=== PATIENT | female | born 1960 | race Caucasian/White ===

== ENCOUNTER 2019-12-27 13:04 | Emergency (ER) | payer BC ==
[~2019-12-27] VITALS: Ht 154.9 cm; Wt 81.6 kg
--- OUTSIDE RECORDS SUMMARY | 2019-12-27 13:08 | XMS REPORT | Summary of Care ---
Author Author KHADIJAH Gonzales, MARBELLA Organization Unknown Address Unknown Phone Unavailable Care Team Providers Care Clinical Services Manager Name Role Phone DENISSE Henderson, SHANNAN Unavailable Unavailable Tamiko Monroy M.A. Unavailable Unavailable KHADIJAH Gonzales, MARBELLA Unavailable Unavailable RHONDA HILL [place], REJI TANG Unavailable Unavailable MYLES HILL, CONRAD Soares Unavailable Unavailable RHONDA Farfan, REJI Varela Unavailable Unavailable Unavailable Functional Status Name Dates Details Functional status health issues are not documented Status: Name Dates Details Cognitive status health issues are not documented Status: Problems Name Dates Details Encounter for routine gynecological examination (V72.31, Z01.419) Status: Active Need for Tdap vaccination (V06.1, Z23) Status: Active Need for hepatitis A vaccination (V05.3, Z23) Status: Active Colon cancer screening (V76.51, Z12.11) Status: Active Herpesviral infection of urogenital system, 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, 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 Change in mole (216.9, D22.9) Status: Active Nonsmoker (V49.89, Z78.9) Status: Active Fever and chills (780.60, R50.9) Status: Active Flu-like symptoms (780.99, R68.89) Status: Active Cough, persistent (786.2, R05) Status: Active Depression (311, F32.9) Status: Active Encounter for medication refill (V68.1, Z76.0) Status: Active Obesity, Class II, BMI 35-39.9 (278.00, E66.9) Status: Active Dental infection (522.4, K04.7) Status: Active Breast cancer screening (V76.10, Z12.39) Status: Active Need for hepatitis C screening test (V73.89, Z11.59) Status: Active Medications Name Dates Details Sertraline HCl - 50 MG Oral Tablet TAKE 1 TABLET DAILYNEEDS OFFICE VISIT Quantity: 30 KHADIJAH N.P., MARBELLA * Start : 11-Feb-2018 Active valACYclovir HCl - 500 MG Oral Tablet TAKE 1 TABLET DAILY * Quantity: 90 Refills: 1 DENISSE Webster.SHANANN Alva Active Amoxicillin 500 MG Oral Capsule TAKE 1 CAPSULE EVERY 8 HOURS FOR 10 DAYS UNTIL GONE. * Quantity: 30 Refills: 0 KHADIJAH N.P., MARBELLA * Start : 20-Mar-2019 Active Allergies and Adverse Reactions Name Dates Details No Known Drug Allergies (Allergy) Status: Active Past Medical History Name Dates Details History of Arthralgia (719.40, M25.50) Status: Resolved Procedures Procedure Dates Details History of Tubal Ligation Completed History of Breast Surgery Enlargement Procedure Completed Immunization Name Dates Details Tdap (Adacel) Lot #: [id number] on: 26-Feb-2015 Hepatitis A Lot #: [id number] on: 26-Feb-2015 Family History Name Dates Details Family history of hypertension (V17.49, Z82.49) Status: Active Name Dates Details Family history of diabetes mellitus (V18.0, Z83.3) Status: Active Family history of hypertension (V17.49, Z82.49) Status: Active Name Dates Details Family history of myocardial infarction (V17.3, Z82.49) Status: Active Social History Name Dates Details - Status: Name Dates Details Never smoker Vital Signs Date Test Result Details No Known Vitals to report Results Date Description Value Details Results not documented Plan of Care Name Dates Details Planned Observations Planned Goals not documented Interventions Provided Medication Changes* Sertraline HCl - 50 MG Oral Tablet - Renew Instructions Name Dates Details Instructions not documented Encounters Appointment; SHANNAN SALCEDO PLynsey Encounter Diagnosis: Problem not documented On: 15-Mar-2018 8:45 Appointment; SHANNAN SALCEDO P.A. Encounter Diagnosis: Problem not documented On: 13-Sep-2018 9:00 Appointment; ADELSO REILLY NP Encounter Diagnosis: Problem not documented On: 26-Dec-2018 9:00 Appointment; MARBELLA LUCIO NP Encounter Diagnosis: Problem not documented On: 20-Mar-2019 9:15
--- OUTSIDE RECORDS SUMMARY | 2019-12-27 13:08 | XMS REPORT | Summary of Care ---
Author Author TYRESE Farfan, BRINA Hirsch Unknown Address Unknown Phone Unavailable Care Team Providers Care Visualizer Name Role Phone SHANNAN ARGUETA Unavailable Unavailable TYRESE Farfan, BRINA Unavailable Unavailable RHONDA HILL [place], REJI TANG Unavailable Unavailable TYRESE HILL, BRINA Unavailable Unavailable MYLES HILL, CONRAD Soares Unavailable [...] Active Cough, persistent (786.2, R05) Status: Active Encounter for medication refill (V68.1, Z76.0) Status: Active Obesity, Class II, BMI 35-39.9 (278.00, E66.9) Status: Active Dental infection (522.4, K04.7) Status: Active Breast cancer screening (V76.10, Z12.39) Status: Active Need for hepatitis C screening test (V73.89, Z11.59) Status: Active Acute upper respiratory infection (465.9, J06.9) Status: Active Depression (311, F32.9) Status: Active Medications Name Dates Details Sertraline HCl - 50 MG Oral Tablet TAKE 1 TABLET DAILYNEEDS OFFICE VISIT Quantity: 30 TYRESE Farfan, BRINA * Start : 11-Feb-2018 Active valACYclovir HCl - 500 MG Oral Tablet TAKE 1 TABLET DAILY * Quantity: 90 Refills: 1 SALCEDO P.A. SHANNAN Active Bromfed DM 30-2-10 MG/5ML Oral Syrup TAKE 5 ML EVERY 6 HOURS * Quantity: 140 Refills: 0 TYRESE Farfan, BRINA * Start : 09-Oct-2019 Active Azithromycin 250 MG Oral Tablet TAKE 2 TABLETS ON DAY 1 THEN TAKE 1 TABLET A DAY FOR 4 DAYS. * Quantity: 6 Refills: 0 JANET XIONG M.D.A * Start : 09-Oct-2019 Active 6 Tablet Pack Allergies and Adverse Reactions Name Dates Details No Known Drug Allergies (Allergy) Status: Active Past Medical History Name Dates Details History of Arthralgia (719.40, M25.50) Status: Resolved Procedures Procedure Dates Details History of Tubal Ligation Completed History of Breast Surgery Enlargement Procedure Completed Immunization Name Dates Details Tdap (Adacel) Lot #: [id number] on: 26-Feb-2015 Hepatitis A Lot #: [id number] on: 26-Feb-2015 Family History Name Dates Details [...] smoker Vital Signs Date Test Result Details :05 O2 SAT 96 % Status: Heart Rate 104 /min Status: :12 Physical Findings 0 Status: Comments: PHQ-9 Adult Depression Screening :07 BP Systolic 123 mm[Hg] Status: BP Diastolic 70 mm[Hg] Status: Heart Rate 120 /min Status: Height 62 in Status: Weight 194 lb Status: Body Mass Index Calculated 35.48 kg/m2 Status: Body Surface Area Calculated 1.89 m2 Status: Temperature 102 f Status: Comments: Method: Temporal Respiration Rate 18 /min Status: Comments: Quality: Normal Physical Findings 0 Status: Comments: Alcohol Screen - How many times in the past yr have you had 5 (for M) or 4 (for F) or 4 (for all > 65yrs) or more drinks in a day? Results Date Description Value Details [id number] [O] Flu Test (in Office ) Flu A NEGATIVE (Normal) Flu B NEGATIVE (Normal) [id number] [O] Streptococcus Test Rapid (In Office) Group A Strep Screen NEGATIVE (Normal) Plan of Care Name Dates Details Planned Observations Planned Goals not documented Interventions Provided Medication Changes* Azithromycin 250 MG Oral Tablet - Start * Bromfed DM 30-2-10 MG/5ML Oral Syrup - Start * Sertraline HCl - 50 MG Oral Tablet - Renew Labs/Procedures/Imaging* [O] Flu Test (in Office ); Done: 09 Oct 2019 * [O] Streptococcus Test Rapid (In Office); Done: 09 Oct 2019 Medications/Immunizations Administered* MethylPREDNISolone Acetate 40 MG/ML Injection Suspension Instructions Name Dates Details Instructions not documented Encounters Appointment; SHANNAN SALCEDO PLynsey Encounter Diagnosis: Problem not documented On: 15-Mar-2018 8:45 Appointment; SHANNAN SALCEDO P.A. Encounter Diagnosis: Problem not documented On: 13-Sep-2018 9:00 Appointment; ADELSO REILLY NP Encounter Diagnosis: Problem not documented On: 26-Dec-2018 9:00 Appointment; MARBELLA LUCIO NP Encounter Diagnosis: Problem not documented On: 20-Mar-2019 9:15 Appointment; BRINA XIONG M.D. Encounter Diagnosis: Problem not documented On: 09-Oct-2019 15:00
--- OUTSIDE RECORDS SUMMARY | 2019-12-27 13:08 | XMS REPORT | Summary of Care ---
Author Author [facility] Address [address] [place] [address] Phone Unavailable Care Team Providers Care Plaster Helper Name Role Phone DENISSE Henderson, SHANNAN Unavailable Unavailable KHADIJAH N.P., MARBELLA Unavailable Unavailable RHONDA HILL [place], REJI TANG Unavailable Unavailable TYRESE HILL, BRINA [...] DAILY * Quantity: 90 Refills: 1 DENISSE P.SHANNAN Alva Active Amoxicillin 500 MG Oral Capsule [...] Name Dates Details Tdap (Adacel) Lot #: [id number] on: 26-Feb-2015 Hepatitis A Lot #: [id number] on: 26-Feb-2015 Family History Name Dates Details [...] Details Planned Observations Planned Goals not documented Instructions Name Dates Details Instructions not documented Encounters Appointment; SHANNAN SALCEDO P.A. Encounter Diagnosis: Problem not documented On: 15-Mar-2018 8:45 Appointment; SHANNAN SALCEDO P.A. Encounter Diagnosis: Problem not documented On: 13-Sep-2018 9:00 Appointment; ADELSO REILLY NP Encounter Diagnosis: Problem not documented On: 26-Dec-2018 9:00 Appointment; MARBELLA LUCIO NP Encounter Diagnosis: Problem not documented On: 20-Mar-2019 9:15 Appointment; BRINA XIONG M.D. Encounter Diagnosis: Problem not documented On: 09-Oct-2019 15:00
--- OUTSIDE RECORDS SUMMARY | 2019-12-27 13:08 | XMS REPORT | Summary of Care ---
Author Author TYRESE Farfan, BRINA Hirsch Unknown Address Unknown Phone Unavailable Care Team Providers Care Spa Host Name Role Phone SHANNAN ARGUETA Unavailable Unavailable TYRESE Farfan, BRINA Unavailable Unavailable RHONDA HILL [place], REJI TANG Unavailable Unavailable TYRESE HILL, BRINA [...] TAKE 1 TABLET DAILYNEEDS OFFICE VISIT Quantity: 90 TYRESE Farfan, BRINA * Start : 11-Feb-2018 Active valACYclovir HCl - 500 MG Oral Tablet TAKE 1 TABLET DAILY * Quantity: 90 Refills: 1 SHANNAN ARGUETA Active Bromfed DM 30-2-10 MG/5ML Oral Syrup [...] Name Dates Details Tdap (Adacel) Lot #: [id number] on: 26-Feb-2015 Hepatitis A Lot #: [id number] on: 26-Feb-2015 Family History Name Dates Details Family history of hypertension (V17.49, Z82.49) Status: Active Name Dates Details Family history of diabetes mellitus (V18.0, Z83.3) Status: Active Family history of hypertension (V17.49, Z82.49) Status: Active Name Dates Details Family history of myocardial infarction (V17.3, Z82.49) Status: Active Social History Name Dates Details - Status: Name Dates Details Never smoked tobacco (finding) Vital Signs Date Test Result Details No [...] documented On: 13-Sep-2018 9:00 Appointment; ADELSO REILLY APRN Encounter Diagnosis: Problem not documented On: 26-Dec-2018 9:00 Appointment; MARBELLA LUCIO APRN Encounter Diagnosis: Problem not documented On: 20-Mar-2019 9:15 Appointment; BRINA XIONG M.D. Encounter Diagnosis: Problem not documented On: 09-Oct-2019 15:00
--- OUTSIDE RECORDS SUMMARY | 2019-12-27 13:08 | XMS REPORT | Summary of Care ---
Author Author Daryl Chaudhry, Tiana Organization Unknown Address Unknown Phone Unavailable Care Team Providers Care Preschool Disability Teacher Name Role Phone SHANNAN ARGUETA Unavailable Unavailable TYRESE Farfan, BRINA Unavailable Unavailable RHONDA HILL [place], REJI TANG Unavailable Unavailable TYRESE HILL, BRINA [...] Name Dates Details Tdap (Adacel) Lot #: [id number] on: 26-Feb-2015 Hepatitis A Lot #: [id number] on: 26-Feb-2015 Family History Name Dates Details [...] a day? Results Date Description Value Details :06 [O] Flu Test (in Office ) Flu A NEGATIVE (Normal) Flu B NEGATIVE (Normal) :07 [O] Streptococcus Test Rapid (In Office) Group [...] Administered* MethylPREDNISolone Acetate 40 MG/ML Injection Suspension Plan* 1. URI, most likely of viral etiology, Strep and flu negative. Discussed that she may develop 2/2 bacterial infection. Delayed rx to be fill if symptoms worsen at 48 hour interval. Discuss with patient this is self- limiting and may be treated with over the counter analgesics (ibuprofen or acetaminophen) for pain. Patient may take supplemental Zinc to help limit viral replication. Patient advised to practice good hand hygiene. Patient may take honey for cough and do warm salt water gargles for sore throat. Advised rest and adequate hydration and if symptoms worsen ie. fever persisting than 101F (38.3C), productive cough, shortness of breath, or very bad headache or facial pain, to call office. * 2. Depression, refilled for one month. * Advised patient to return to clinic for routine follow up, labs and screenings. * Return to clinic within one months, sooner if needed * Please seek early care if condition worsens or there are new changes Instructions Name Dates Details Instructions not documented Encounters Appointment; SHANNAN SALCEDO P.A. Encounter Diagnosis: Problem not documented On: 15-Mar-2018 8:45 Appointment; SHANNAN SALCEDO P.A. Encounter Diagnosis: Problem not documented On: 13-Sep-2018 9:00 Appointment; MELBA, ADELSO, [employer] Encounter Diagnosis: Problem not documented On: 26-Dec-2018 9:00 Appointment; MARBELLA LUCIO NP Encounter Diagnosis: Problem not documented On: 20-Mar-2019 9:15 Appointment; BRINA XIONG M.D. Encounter Diagnosis: Problem not documented On: 09-Oct-2019 15:00
--- OUTSIDE RECORDS SUMMARY | 2019-12-27 13:08 | XMS REPORT | Summary of Care ---
Author Author [facility] Address [address] [place] [address] Phone Unavailable Care Team Providers Care Health Economist Name Role Phone SHANNAN ARGUETA Unavailable Unavailable KHADIJAH N.P., MARBELLA Unavailable Unavailable RHONDA HILL [place], REJI TANG Unavailable Unavailable TYRESE HILL, BRINA Unavailable Unavailable MYLES HILL, CONRAD Soares Unavailable Unavailable RHONDA Farfan, REJI Varela Unavailable Unavailable Unavailable Functional Status Name Dates Details Functional status health issues are not documented Status: Name Dates Details Cognitive status health issues are not documented Status: Problems Name Dates Details Colon cancer screening (V76.51, Z12.11) Status: Active Fever and chills (780.60, R50.9) [...] C screening test (V73.89, Z11.59) Status: Active Nonsmoker (V49.89, Z78.9) Status: Active Change in mole (216.9, D22.9) Status: Active Herpesviral infection of urogenital system, 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 Quantity: 30 KHADIJAH N.P., MARBELLA * Start : 20-Mar-2019 Active valACYclovir HCl - 500 MG Oral Tablet TAKE 1 TABLET DAILY * Quantity: 90 Refills: 1 DENISSE P.Lanre., SHANNAN Active Sertraline HCl - 50 MG Oral Tablet TAKE 1 TABLET DAILYNEEDS OFFICE VISIT * Quantity: 30 Refills: 0 KHADIJAH N.P., MARBELLA * Start : 11-Feb-2018 Active Allergies and Adverse Reactions Name Dates Details No Known Drug Allergies (Allergy) Status: Active Past Medical History Name Dates Details History of Arthralgia (719.40, M25.50) Status: Resolved Procedures Procedure Dates Details History of Tubal Ligation Completed History of Breast Surgery Enlargement Procedure Completed Immunization Name Dates Details Tdap (Adacel) Lot #: [id number] on: 26-Feb-2015 Hepatitis A Lot #: [id number] on: 26-Feb-2015 Family History Name Dates Details [...] Details Planned Observations Planned Goals not documented Planned Encounters Appointment; BRINA XIONG M.D. On: 09-Oct-2019 15:00 Instructions Name Dates Details Instructions not documented Encounters Appointment; SHANNAN SALCEDO P.A. Encounter Diagnosis: Problem not documented On: 15-Mar-2018 8:45 Appointment; SHANNAN SALCEDO P.A. Encounter Diagnosis: Problem not documented On: 13-Sep-2018 9:00 Appointment; ADELSO REILLY NP Encounter Diagnosis: Problem not documented On: 26-Dec-2018 9:00 Appointment; MARBELLA LUCIO NP Encounter Diagnosis: Problem not documented On: 20-Mar-2019 9:15
--- OUTSIDE RECORDS SUMMARY | 2019-12-27 13:08 | XMS REPORT | Summary of Care ---
Author Author Conrad Mejia R.N. Unknown Address [facility] Phone Unavailable Care Team Providers Care Head And Neck Surgeon Name Role Phone DENISSE Henderson, SHANNAN Unavailable Unavailable KHADIJAH N.PЕкатерина, MARBELLA Unavailable Unavailable TYRESE Farfan, BRINA Unavailable Unavailable [...] Quantity: 90 Refills: 1 SHANNAN ARGUETA Active Allergies and Adverse Reactions Name Dates Details No Known Drug Allergies (Allergy) Status: Active Past Medical History Name Dates Details History of Arthralgia (719.40, M25.50) Status: Resolved Procedures Procedure Dates Details History of Tubal Ligation Completed History of Breast Surgery Enlargement Procedure Completed Immunization Name Dates Details Tdap (Adacel) Lot #: [id number] on: 26-Feb-2015 Hepatitis A Lot #: [id number] on: 26-Feb-2015 Family History Name Dates Details [...] smoker Vital Signs Date Test Result Details :12 Physical Findings 0 Status: Comments: PHQ-9 Adult Depression Screening :07 BP Systolic 123 mm[Hg] Status: BP Diastolic 70 mm[Hg] Status: Height 62 in Status: Weight 194 lb Status: Body Mass Index Calculated 35.48 kg/m2 Status: Body Surface Area Calculated 1.89 m2 Status: Heart Rate 120 /min Status: Temperature 102 f Status: Comments: Method: Temporal Respiration Rate 18 /min Status: Comments: Quality: Normal Physical Findings 0 Status: Comments: Alcohol Screen - How many times in the past yr have you had 5 (for M) or 4 (for F) or 4 (for all > 65yrs) or more drinks in a day? Results Date Description Value Details Results not [...]
[2019-12-27] MEDS ORDERED: HYDROCODONE/APAP 10MG-325MG TAB PO ONE (13:15)
[2019-12-27] MEDS ORDERED: SERTRALINE HCL50 MG PO (13:24)
[2019-12-27] MEDS ORDERED: LIDOCAINE 1% 5ML-MPF INJ ONE (14:15)
--- NOTE | 2019-12-27 14:28 | Diagnostic Imaging Report ---
RIGHT FIRST TOE 2 VIEWS History: Right great toe pain status post fall Findings: AP and lateral views of the right great toe were performed. There is a severely comminuted fracture of the proximal phalanx of the great toe, extending to the articular surfaces of the proximal phalanx at both the MTP and IP joints. There is mild depression of the medial aspect of the articular surface of the head of the proximal phalanx at the great toe interphalangeal joint. There is mild depression of the medial aspect of the articular surface at the base of the proximal phalanx at the great toe MTP joint. There is mild fracture displacement. There is surrounding soft tissue swelling and right toe. No fracture is visualized in the first metatarsal or in the distal phalanx of the great toe. Mild changes of osteoarthritis are noted at the great toe MTP joint. IMPRESSION: Severely comminuted intra-articular fracture of the proximal phalanx of the great toe. Signed by: Robin Smith MD on 12/27/2019 2:25 PM
--- NOTE | 2019-12-27 14:32 | Diagnostic Imaging Report ---
LEFT FOOT 2 VIEWS History: Left foot pain status post fall Comparison: No comparison left foot imaging Findings: AP and lateral radiographs of the left foot were obtained. There is an oblique fracture in the distal third of the fifth metatarsal. There is minimal medial displacement of the distal fracture fragment. No additional fractures are visualized in the left foot. There are [id number] changes of osteoarthritis of the great toe MTP joint. Mild osteophytosis of the interphalangeal joint of the great toe. Mild soft tissue swelling medial to the great toe interphalangeal joint. [id number] plantar calcaneal enthesophyte. Small Achilles enthesophyte. IMPRESSION: Fifth metatarsal fracture. Signed by: Robin Smith MD on 12/27/2019 2:28 PM
== END 2019-12-27 15:05 | disposition home or self-care (01) ==
LOC: ER 13:04
DX: S92.311A Displaced fracture of first metatarsal bone, right foot, initial encounter for closed fracture (principal); S92.352A Displaced fracture of fifth metatarsal bone, left foot, initial encounter for closed fracture; W10.8XXA Fall (on) (from) other stairs and steps, initial encounter; Y92.008 Other place in unspecified non-institutional (private) residence as the place of occurrence of the external cause
CPT/HCPCS: 99284

== ENCOUNTER 2024-10-14 11:55 | Emergency (ER) | payer BC, OTHER ==
[~2024-10-14] VITALS: Ht 154.9 cm; Wt 81.6 kg
[~2024-10-14 11:55] MED LIST: SERTRALINE HCL50 MG PO
[2024-10-14 12:40] LABS: BASOPHILS # (AUTO) 0.1 (0.0-0.1); BASOPHILS % 0.5 % (0.0-1.0); EOSINOPHILS # (AUTO) 0.1 (0.0-0.4); EOSINOPHILS % 0.5 % (0.0-6.0); HEMATOCRIT 39.4 % (34.2-44.1); LYMPHOCYTES # (AUTO) 1.9 (1.0-3.2); LYMPHOCYTES % 16.3 % (18.0-39.1); MEAN CORPUSCULAR HEMOGLOBIN 29.5 pg (28-32); MEAN CORPUSCULAR VOLUME 89.5 fL (81-99); MONOCYTES # (AUTO) 0.3 (0.2-0.8); MONOCYTES % 2.9 % (4.4-11.3); NEUTROPHILS # (AUTO) 9.1 (2.1-6.9); NEUTROPHILS % 79.2 % (38.7-80.0); PLATELET COUNT 373 x10e3/uL (140-360); RED CELL DISTRIBUTION WIDTH 12.8 % (11.7-14.4); WHITE BLOOD COUNT 11.47 x10e3/uL (4.8-10.8)
[2024-10-14] MEDS: ONDANSETRON HCL INJ 2MG/ML 2ML 2 MG/ML VIAL IV STA ×2 (12:48→14:45)
[2024-10-14] MEDS: SODIUM CHLORIDE 0.9% 1000ML 1,000 ML IV STA ×2 (12:48→14:45)
[2024-10-14] MEDS: DIAZEPAM INJ 5 MG/ML 2 ML IV ONE (12:49)
[2024-10-14 12:52] LABS: INR 0.82; PARTIAL THROMBOPLASTIN TIME 26.7 seconds (23.8-35.5); PROTHROMBIN TIME 11.8 seconds (11.9-14.5)
[2024-10-14] MEDS: MECLIZINE HCL 12.5 MG TAB PO ONE ×2 (12:52→14:45)
[2024-10-14] MEDS: SODIUM CHLORIDE 0.9% 1000ML 1,000 ML IV SCH (12:53)
[2024-10-14 13:01] LABS: ALANINE AMINOTRANSFERASE 11 IU/L (0-55); ALBUMIN 4.2 g/dL (3.5-5.0); ALBUMIN/GLOBULIN RATIO 1.3 (0.8-2.0); ALKALINE PHOSPHATASE 65 IU/L (40-150); ANION GAP 14.1 mmol/L (8-16); BILIRUBIN,TOTAL 0.3 mg/dL (0.2-1.2); BLOOD UREA NITROGEN 15 mg/dL (7-26); BUN/CREATININE RATIO 18 (6-25); CALCIUM 9.1 mg/dL (8.4-10.2); CARBON DIOXIDE 24 mmol/L (22-29); CHLORIDE 105 mmol/L (98-107); CREATINE KINASE 37 IU/L (29-168); CREATININE, SERUM 0.82 mg/dL (0.57-1.11); EST GLOMERULAR FILTRATION RATE 81 ML/MIN (>=60); GLUCOSE 131 mg/dL (74-118); POTASSIUM 4.1 mmol/L (3.5-5.1); SODIUM 139 mmol/L (136-145); TOTAL PROTEIN 7.4 g/dL (6.5-8.1)
[2024-10-14 13:11] LABS: TROPONIN I < 0.001 ng/mL (0-0.300)
[2024-10-14] MEDS ORDERED: IOPAMIDOL 370 MG/ML 100 ML INFUS..BTL INJ ONE (14:03)
[2024-10-14] MEDS: KETOROLAC TROMETHAMINE 30 MG/ML VIAL IV STA (14:46)
[2024-10-14 15:20] LABS: CLARITY,URINE HAZY (CLEAR); COLOR,URINE YELLOW (YELLOW)
[2024-10-14 15:21] LABS: BACTERIA,URINE FEW /HPF; BILIRUBIN,URINE NEGATIVE (NEGATIVE); EPITHELIAL CELLS,URINE FEW /LPF; GLUCOSE, URINE NEGATIVE (NEGATIVE); KETONES,URINE NEGATIVE (NEGATIVE); LEUKOCYTE ESTERASE ,URINE NEGATIVE (NEGATIVE); NITRITE,URINE NEGATIVE (NEGATIVE); PH,URINE 6 (5 - 7); PROTEIN,URINE DIPSTICK NEGATIVE (NEGATIVE); RBC,URINE 0-5 /HPF (0-5); URINE UROBILINOGEN 0.2 mg/dL (0.2 - 1); WBC,URINE (MAN) 0-5 /HPF (0-5)
[2024-10-14] MEDS ORDERED: ONDANSETRON ODT4 MG PO (15:31)
[2024-10-14] MEDS ORDERED: MECLIZINE HCL25 MG PO (15:31)
[2024-10-14 15:35] VITALS: PULSE 70; RESP 18; TEMP 97.9; O2SAT 100
== END 2024-10-14 15:57 | disposition home or self-care (01) ==
LOC: ER 12:32
DX: H81.399 Other peripheral vertigo, unspecified ear (principal); R11.2 Nausea with vomiting, unspecified; F32.A Depression, unspecified
CPT/HCPCS: 36415; 70450; 70496; 70498; 71045; 80053; 81001; 82550; 84484; 85025; 85610; 85730; 93005; 99284; J1885; J2405; J3360; J7030; J8597; Q9967